=== PATIENT | female | born 1955 | race Caucasian/White ===

== ENCOUNTER → 2017-12-09 | Emergency (ER) | payer OTHER ==
[~2017-12-09] VITALS: Ht 160 cm; Wt 74.8 kg
[~2017-12-09] MED LIST: BENADRYL50 MG PO; FIORICET 50-321 EACH PO; KETO10TA2; KETO10TA2 PO; METHYLPRED4 MG/DOSE- PO; TRAMADOL HCL50 MG PO
== END | disposition home or self-care (01) ==
LOC: ER 23:26
DX: S92.355A Nondisplaced fracture of fifth metatarsal bone, left foot, initial encounter for closed fracture (principal); X50.3XXA Overexertion from repetitive movements, initial encounter; Y93.89 Activity, other specified; Y92.090 Kitchen in other non-institutional residence as the place of occurrence of the external cause; Y99.8 Other external cause status

== ENCOUNTER 2017-12-21 13:02 | Outpatient (CLI) | payer OTHER | END 2017-12-21 13:10 | disposition home or self-care (01) | LOC: RAD 13:02 | DX: S92.355A Nondisplaced fracture of fifth metatarsal bone, left foot, initial encounter for closed fracture (principal) ==

== ENCOUNTER 2017-12-22 11:31 | Outpatient (CLI) | payer OTHER | END 2017-12-22 15:00 | disposition home or self-care (01) | LOC: RAD 11:31 | DX: M54.5 Low back pain (principal); M62.830 Muscle spasm of back ==

== ENCOUNTER 2017-12-22 12:34 | Outpatient (CLI) | payer OTHER | END 2017-12-22 12:45 | disposition home or self-care (01) | LOC: RAD 501 12:34 | DX: M25.511 Pain in right shoulder (principal) ==

== ENCOUNTER 2018-02-14 08:50 | Outpatient (CLI) | payer OTHER | END 2018-02-14 09:25 | disposition home or self-care (01) | LOC: LAB 08:50 | DX: E21.3 Hyperparathyroidism, unspecified (principal); E88.89 Other specified metabolic disorders; M81.8 Other osteoporosis without current pathological fracture; E83.42 Hypomagnesemia; E56.1 Deficiency of vitamin K; E03.8 Other specified hypothyroidism ==

== ENCOUNTER 2018-02-14 10:42 | Outpatient (CLI) | payer OTHER | END 2018-02-14 17:00 | disposition home or self-care (01) | LOC: SONOGRAMA 10:42 | DX: M25.511 Pain in right shoulder (principal); M75.41 Impingement syndrome of right shoulder ==

== ENCOUNTER 2018-02-22 14:58 | Outpatient (CLI) | payer OTHER | END 2018-02-22 15:15 | disposition home or self-care (01) | LOC: LAB 14:58 | DX: J01.90 Acute sinusitis, unspecified (principal); J20.9 Acute bronchitis, unspecified ==

== ENCOUNTER 2018-02-22 15:31 | Outpatient (CLI) | payer OTHER | END 2018-02-22 15:43 | disposition home or self-care (01) | LOC: RAD 15:31 | DX: J20.9 Acute bronchitis, unspecified (principal); J01.90 Acute sinusitis, unspecified ==

== ENCOUNTER → 2021-09-03 | Outpatient (CLI) | payer OTHER | END | disposition home or self-care (01) | LOC: NUCLEAR 07:00 | PROVIDERS: ATTEND Internal Medicine Cardiovascular Disease | DX: I25.10 Atherosclerotic heart disease of native coronary artery without angina pectoris (principal) | CPT/HCPCS: 78452; 93017; A9500 ==

== ENCOUNTER 2022-10-31 13:12 | Emergency (ER) | payer OTHER ==
[~2022-10-31] VITALS: Ht 157.5 cm; Wt 77.1 kg
[2022-10-31] MEDS ORDERED: OMEPRAZOLE20 MG PO (14:17)
== END 2022-10-31 18:04 | disposition home or self-care (01) ==
LOC: ER 13:12
DX: M79.671 Pain in right foot (principal); J45.909 Unspecified asthma, uncomplicated

== ENCOUNTER 2023-04-27 12:14 | Emergency (ER) | payer OTHER ==
[~2023-04-27] VITALS: Ht 157.5 cm; Wt 78.0 kg
[~2023-04-27 12:14] MED LIST changes: +OMEPRAZOLE20 MG PO
== END 2023-04-27 15:40 | disposition home or self-care (01) ==
LOC: ER 12:14
DX: K08.89 Other specified disorders of teeth and supporting structures (principal)

== ENCOUNTER 2023-07-13 02:21 | Emergency (ER) | payer OTHER ==
[~2023-07-13] VITALS: Ht 157.5 cm; Wt 78.9 kg
[2023-07-13] MEDS ORDERED: OMEPRAZOLE40 MG PO (02:30)
[2023-07-13] MEDS ORDERED: MELOXICAM15 MG PO (06:31)
[2023-07-13] MEDS ORDERED: PEPCID40 MG PO (06:32)
== END 2023-07-13 06:38 ==
LOC: ER 02:21
PROVIDERS: General Practice
DX: R07.89 Other chest pain (principal); M94.0 Chondrocostal junction syndrome [Tietze]
CPT/HCPCS: 36415; 71046; 93005; 96372; 99284; J1885